=== PATIENT | male | born 1990 ===

== ENCOUNTER 2016-10-04 19:39 | Emergency (ER) | payer SELFPAY ==
[2016-10-04 19:48] VITALS: BP 128/71; RESP 18; TEMP 97.7; O2SAT 98
[2016-10-04] MEDS ORDERED: Oxycodone/Acetaminophen 5/325 mg Tab PO STA (20:41)
--- NOTE | 2016-10-04 20:45 | ED PDOC ---
HPI: Dental Pain/Injury Time Seen by Provider: 10/04/16 20:02 Chief Complaint (Nursing): Dental Pain Chief Complaint (Provider): Right upper left dental pain x 4 days History Per: Patient History/Exam Limitations: no limitations Onset/Duration Of Symptoms: Days Current Symptoms Are (Timing): Still Present Severity: Severe Pain Scale Rating Of: 10 Quality: Sharp Additional Complaint(s): Taking tylenol without relief. No fever/chills. No drainage. Past Medical History Reviewed: Historical Data, Nursing Documentation, Vital Signs Vital Signs: Last Vital Signs Temp 97.7 F 10/04/16 19:45 Pulse 102 H 10/04/16 19:45 Resp 18 10/04/16 19:45 BP 128/71 10/04/16 19:45 Pulse Ox 98 10/04/16 19:45 - Medical History PMH: Asthma, Bronchitis - Surgical History Surgical History: No Surg Hx - Family History Family History: States: Unknown Family Hx - Living Arrangements Living Arrangements: With Family - Social History Current smoker - smoking cessation education provided: No - Immunization History Hx Tetanus Toxoid Vaccination: No Hx Influenza Vaccination: No Hx Pneumococcal Vaccination: No - Home Medications Home Medications: Ambulatory Orders Medication Instructions Recorded Albuterol Sulfate [Albuterol Hfa] 2 puff IH Q4 PRN #1 unit 12/17/13 Albuterol Sulfate [Albuterol 3 ml IH QID #100 vial 12/24/13 Sulfate 3 ml] Azithromycin [Zithromax Z-Yogi] 250 mg PO DAILY #6 tab 12/24/13 Nebulizer [Aerosol Therapy 1 dev NEB PRN PRN #1 dev 12/24/13 Nebulizer] guaiFENesin/Dextromethorphan 5 ml PO QID #100 ml 12/24/13 [Q-Tussin Dm 10 MG/5 Ml-100 MG/5 Ml 120 Ml] Penicillin VK [Pen-Vee K] 500 mg PO BID #20 tab 10/04/16 oxyCODONE/Acetaminophen [Percocet 1 ea PO Q6H PRN #15 tab 10/04/16 5/325 mg Tab] - Allergies Allergies/Adverse Reactions: Allergies Allergy/AdvReac Type Severity Reaction Status Date / Time No Known Allergies Allergy Verified 12/17/13 07:48 Review of Systems ROS Statement: Except As Marked, All Systems Reviewed And Found Negative Constitutional: Negative for: Fever, Chills ENT: Positive for: Other Physical Exam - Reviewed Nursing Documentation Reviewed: Yes Vital Signs Reviewed: Yes - Physical Exam Appears: Positive for: Well, Non-toxic, No Acute Distress Head Exam: Positive for: ATRAUMATIC, NORMAL INSPECTION, NORMOCEPHALIC Skin: Positive for: Warm. Negative for: Normal Color Eye Exam: Positive for: Normal appearance ENT: Positive for: Normal ENT Inspection, Other Neck: Positive for: Normal, Painless ROM Cardiovascular/Chest: Positive for: Regular Rate, Rhythm Respiratory: Positive for: Normal Breath Sounds. Negative for: Accessory Muscle Use, Respiratory Distress Back: Positive for: Normal Inspection Extremity: Positive for: Normal ROM Neurologic/Psych: Positive for: Alert, Oriented - ECG O2 Sat by Pulse Oximetry: 98 Pulse Ox Interpretation: Normal Disposition - Clinical Impression Clinical Impression: Dental caries - Patient ED Disposition Is Patient to be Admitted: No Counseled Patient/Family Regarding: Diagnosis, Need For Followup, Rx Given - Disposition Referrals: [facility] [Outside] Disposition: Routine/Home Disposition Time: 20:47 Condition: GOOD Prescriptions: oxyCODONE/Acetaminophen [Percocet 5/325 mg Tab] 1 ea PO Q6H PRN #15 tab PRN Reason: Pain, Severe (8-10) Penicillin VK [Pen-Vee K] 500 mg PO BID #20 tab Instructions: Toothache (ED)
[2016-10-04] MEDS ORDERED: Oxycodone/Acetaminophen 5/325 mg Tab ONE (21:08)
[2016-10-04 21:11] VITALS: PULSE 92
== END 2016-10-04 21:11 | disposition home or self-care (01) ==
LOC: H.ER 19:39
DX: K02.9 Dental caries, unspecified (principal)

== ENCOUNTER 2018-05-30 17:27 | Emergency (ER) | payer MEDICAID, OTHER ==
[2018-05-30 17:50] VITALS: TEMP 98.7; O2SAT 97
[2018-05-30] MEDS ORDERED: Sterile Water 10 ML IV ONE (19:14)
[2018-05-30] MEDS ORDERED: cefTRIAXone (Rocephin) 250 mg Inj ONE (19:15)
[2018-05-30] MEDS: cefTRIAXone (Rocephin) 250 mg Inj IM ONE (19:59)
--- NOTE | 2018-05-30 20:05 | ED PDOC ---
HPI: Male Pain Time Seen by Provider: 05/30/18 18:25 Chief Complaint (Nursing): Male Genitourinary Chief Complaint (Provider): Male Genitourinary History Per: Patient History/Exam Limitations: no limitations Additional Complaint(s): 27 year old male with a history of childhood asthma presents to the ED requesting STD prophylaxis. Patient states he received a text from his ex boyfriend stating that he tested positive for chlamydia. Patient admitted to having unprotected sex with that partner, prompting ED visit today. Patient denies having a history of STD's. In addition patient is requesting HIV testing. Patient denies having any symptoms or physical complaints at present. PMD: None Past Medical History Reviewed: Historical Data, Nursing Documentation, Vital Signs Vital Signs: Last Vital Signs Temp 98.7 F 05/30/18 17:46 Pulse 108 H 05/30/18 17:46 Resp 18 05/30/18 17:46 BP 148/93 H 05/30/18 17:46 Pulse Ox 97 05/30/18 17:46 SEBASTIAN Report Viewed: Yes - Medical History PMH: Asthma (Childhood ), Bronchitis - Surgical History Other surgeries: Keloid Removal - Family History Family History: States: No Known Family Hx - Social History Current smoker - smoking cessation education provided: Yes SMOKER/PACKS PER DAY:: 1 Alcohol: Social Drugs: Denies - Home Medications Home Medications: Ambulatory Orders Medication Instructions Recorded Albuterol Sulfate [Albuterol Hfa] 2 puff IH Q4 PRN #1 unit 12/17/13 Nebulizer [Aerosol Therapy 1 dev NEB PRN PRN #1 dev 12/24/13 Nebulizer] oxyCODONE/Acetaminophen [Percocet 1 ea PO Q6H PRN #15 tab 10/04/16 5/325 mg Tab] Naproxen 500 mg PO BID PRN 01/14/18 Naproxen [Naprosyn] 1 tab PO BID PRN #20 tab 01/14/18 - Allergies Allergies/Adverse Reactions: Allergies Allergy/AdvReac Type Severity Reaction Status Date / Time No Known Allergies Allergy Verified 12/17/13 07:48 Review of Systems ROS Statement: Except As Marked, All Systems Reviewed And Found Negative Physical Exam - Reviewed Nursing Documentation Reviewed: Yes Vital Signs Reviewed: Yes - Physical Exam Comments: GENERAL APPEARANCE: Patient is awake, alert, oriented x 3, in no acute distress. Resting comfortably. SKIN: Warm, dry; (-) cyanosis. LUNGS: clear to auscultation bilaterally (-) wheezing, (-) rhonchi (-) rales CARDIAC: RRR ABDOMEN: Soft. (-) tenderness (-) distention (-) CVA tenderness NECK: Supple, FROM ENT: Mucus membranes moist. Airway patent, (-) stridor. - ECG O2 Sat by Pulse Oximetry: 97 (RA) Pulse Ox Interpretation: Normal Medical Decision Making Medical Decision Makin:25 Clincal Impression: 27 year old male patient requesting STD prophylaxis Initial Plan: * Rapid HIV Screen * Chlamydia/GC RNA, TMA * Rocephin 250mg IM Once * Zithromax 1000 mg PO 2019 Repeat BP: 134/88 Repeat HR: 88 Rapid HIV: nonreactive On re-evaluation, patient reports improvement of symptoms. On exam, patient remains AAOx3, in no acute distress. Vitals stable. Lab/Diagnostic results d/w the patient in great detail. Diagnosis of STD exposure d/w the patient. Based on history, exam and diagnostic results, plan will be for outpatient follow up. Patient instructed to follow-up with pmd / referral provided / the clinic in 1- 2 days without fail. Advised to take medication as prescribed. Return to the emergency room at any time for any new or worsening symptoms. Patient states he fully agrees with and understands discharge instructions. States that he agrees with the plan and disposition. Verbalized and repeated discharge instructions and plan. I have given the patient opportunity to ask any additional questions. Scribe Attestation: Documented by Mahad George, acting as a scribe for Ricarda Rich PA-C. Provider Scribe Attestation: All medical record entries made by the Scribe were at my direction and personally dictated by me. I have reviewed the chart and agree that the record accurately reflects my personal performance of the history, physical exam, medical decision making, and the department course for this patient. I have also personally directed, reviewed, and agree with the discharge instructions and disposition. Disposition - Clinical Impression Clinical Impression: STD exposure - Patient ED Disposition Is Patient to be Admitted: No Counseled Patient/Family Regarding: Studies Performed, Diagnosis, Need For Followup - Disposition Referrals: [facility] [Outside] Carlyle Cosme MD [Medical Doctor] - Disposition: Routine/Home Disposition Time: 20:20 Condition: STABLE Additional Instructions: The emergency medical care you received today was directed at your acute symptoms. If you were prescribed any medication, please fill it and take as directed. It may take several days for your symptoms to resolve. Return to the Emergency Department if your symptoms worsen, do not improve, or if you have any other problems. Please contact your doctor in 2 days for re-evaluation and follow up / or call one of the physicians/clinics you have been referred to that are listed on the Patient Visit Information form that is included in your discharge packet. Bring any paperwork you were given at discharge with you along with any medications you are taking to your follow up visit. Our treatment cannot replace ongoing medical care by a primary care provider (PCP) outside of the emergency department. Instructions: Screening for Sexually Transmitted Infections, Sexually- Transmitted Diseases, STD Prevention Forms: [facility] (Czech) Print Language: VIETNAMESE - POA Present On Arrival: None Results - Lab Results Lab Results: 05/30/18 19:24 HIV-1 Ab Rapid Screen Non reactive
[2018-05-30 20:26] VITALS: BP 134/88; PULSE 88; RESP 16
== END 2018-05-30 20:52 | disposition home or self-care (01) ==
LOC: H.ER 17:27
DX: Z20.2 Contact with and (suspected) exposure to infections with a predominantly sexual mode of transmission (principal)
CPT/HCPCS: 87390; 87491; 87591; 96372; 99282; J0696

== ENCOUNTER 2018-07-02 13:03 | Emergency (ER) | payer OTHER ==
[2018-07-02] MEDS ORDERED: Albuterol-Ipratrop 3 mg / 0.5 (3 ml) UD INH STA ×2 (14:08→14:50)
[2018-07-02] MEDS ORDERED: Albuterol-Ipratrop 3 mg / 0.5 (3 ml) UD ONE ×2 (14:13→14:57)
[2018-07-02 14:49] LABS: BASO % 0.3 % (0.0-2.0); EOS # 0.1 K/uL (0.0-0.7); EOS % 0.9 % (0.0-4.0); LYMPH # 2.3 K/uL (1.0-4.3); LYMPH % 30.2 % (20.0-40.0); MEAN CELL VOLUME 87.8 fl (80.0-94.0); MEAN CORPUSCULAR HEMOGLOBIN 29.7 pg (27.0-31.0); MEAN CORPUSCULAR HGB CONC 33.9 g/dL (33.0-37.0); MEAN PLATELET VOLUME 9.7 fl (7.2-11.7); MONO % 13.7 % (0.0-10.0); NEUT # 4.2 K/uL (1.8-7.0); NEUT % 54.9 % (50.0-75.0); NRBC % 0.1 % (0.0-0.0); RBC 5.37 Mil/uL (4.40-5.90); RED CELL DISTRIBUTION WIDTH 14.1 % (11.5-14.5); WHITE BLOOD COUNT 7.6 K/uL (4.8-10.8)
--- NOTE | 2018-07-02 14:51 | RAD ---
Date of service: 07/02/2018 HISTORY: shortness of breath, cough COMPARISON: No prior. TECHNIQUE: Chest PA and lateral views FINDINGS: LUNGS: Ill-defined opacity upper right chauncey thorax, likely right upper lobe. Not clearly evident in the lateral projection. No other abnormal opacity. PLEURA: No significant pleural effusion identified. No pneumothorax apparent. CARDIOVASCULAR: No aortic atherosclerotic calcification present. Normal cardiac size. No pulmonary vascular congestion. OSSEOUS STRUCTURES: No significant abnormalities. VISUALIZED UPPER ABDOMEN: Normal. OTHER FINDINGS: None. IMPRESSION: Probable right upper lobe pneumonia.
[2018-07-02 14:52] LABS: BLOOD UREA NITROGEN 9 mg/dl (9-20); CALCIUM 8.8 mg/dL (8.4-10.2); GFR NON-AFRICAN AMERICAN > 60
--- NOTE | 2018-07-02 15:03 | ED PDOC ---
HPI: Influenza Time Seen by Provider: 07/02/18 13:26 Chief Complaint: Cough, Cold, Congestion Chief Complaint (Provider): Cough, Cold, Congestion History Per: Patient Exam Limitations: no limitations Onset/Duration Of Symptoms: Days (7) Additional complaint(s):: 27 y/o male presents to the ED complaining of cough with shortness of breath for the past week. Patient states that the cough is productive with white sputum and subjective fever last night which took Tylenol. Patient report 1 episode of chills 3 days ago and admits use nebulizer last night and has not been using inhaler because I know I need steroids. Patient denies nausea, vomiting, diarrhea, sore throat, ear pain, or any body aches. PMD: none provided Past Medical History Reviewed: Historical Data, Nursing Documentation, Vital Signs Vital Signs: Last Vital Signs Temp 98.9 F 07/02/18 13:21 Pulse 105 H 07/02/18 13:21 Resp 20 07/02/18 13:21 BP 136/83 07/02/18 13:21 Pulse Ox 97 07/02/18 13:21 - Medical History PMH: Asthma (Childhood ), Bronchitis - Family History Family History: States: Unknown Family Hx - Immunization History Hx Tetanus Toxoid Vaccination: No Hx Influenza Vaccination: No Hx Pneumococcal Vaccination: No - Home Medications Home Medications: Ambulatory Orders Medication Instructions Recorded Albuterol Sulfate [Albuterol Hfa] 2 puff IH Q4 PRN #1 unit 12/17/13 Nebulizer [Aerosol Therapy 1 dev NEB PRN PRN #1 dev 12/24/13 Nebulizer] oxyCODONE/Acetaminophen [Percocet 1 ea PO Q6H PRN #15 tab 10/04/16 5/325 mg Tab] Naproxen 500 mg PO BID PRN 01/14/18 Naproxen [Naprosyn] 1 tab PO BID PRN #20 tab 01/14/18 Albuterol 0.083% [Albuterol 0.083% 3 ml IH Q6 PRN 7 Days neb 07/02/18 Inhal Berta (2.5 mg/3 ml) UD] Albuterol HFA [Ventolin HFA 90 1 puff IH Q6 PRN #1 inhaler 07/02/18 mcg/actuation (8 g)] Levofloxacin [Levaquin] 750 mg PO DAILY #4 tablet 07/02/18 Prednisone 50 mg PO DAILY #4 tablet 07/02/18 - Allergies Allergies/Adverse Reactions: Allergies Allergy/AdvReac Type Severity Reaction Status Date / Time No Known Allergies Allergy Verified 12/17/13 07:48 Review of Systems ROS Statement: Except As Marked, All Systems Reviewed And Found Negative Constitutional: Positive for: Other ((-) bodyaches.) ENT: Negative for: Ear Pain, Throat Pain Respiratory: Positive for: Cough, Shortness of Breath Gastrointestinal: Negative for: Nausea, Vomiting, Diarrhea Physical Exam - Reviewed Nursing Documentation Reviewed: Yes Vital Signs Reviewed: Yes - Physical Exam Appears: Positive for: No Acute Distress ENT: Positive for: Normal ENT Inspection, Other (Mild erythematous left tympanic membrane and ear canal.) Cardiovascular/Chest: Positive for: Regular Rate, Rhythm. Negative for: Murmur Respiratory: Positive for: Rhonchi, Wheezing (bilateral) Neurological/Psych: Positive for: Awake, Alert, Oriented (x3) Medical Decision Making Medical Decision Making: Time:1407 Initial Plan: -BMP -CBC -Chest x-ray -Duoneb 3mL INH x1 -Blood culture -Peak flow pre and post -Influenza CXR: FINDINGS: LUNGS: Ill-defined opacity upper right chauncey thorax, likely right upper lobe. Not clearly evident in the lateral projection. No other abnormal opacity. PLEURA: No significant pleural effusion identified. No pneumothorax apparent. CARDIOVASCULAR: No aortic atherosclerotic calcification present. Normal cardiac size. No pulmonary vascular congestion. OSSEOUS STRUCTURES: No significant abnormalities. VISUALIZED UPPER ABDOMEN: Normal. OTHER FINDINGS: None. IMPRESSION: Probable right upper lobe pneumonia. 1456 reevaluated and lungs sound has improved but continue mild intermittent wheezing. Duoneb x1, Blood culture, Levaquin 750 PO x1. 15:45: re-evaluated, lungs clear B/L. States that SOB has improved but still has some. Labs are unremarkable and VSS. Stable for d/c home with return instructions given. Scribe Attestation: Documented by Gabrielle Araujo, acting as a scribe for Rachel Burgess. Provider Scribe Attestation: All medical record entries made by the Scribe were at my direction and personally dictated by me. I have reviewed the chart and agree that the record accurately reflects my personal performance of the history, physical exam, medical decision making, and the department course for this patient. I have also personally directed, reviewed, and agree with the discharge instructions and disposition. - Laboratory Results Result Diagrams: 07/02/18 14:10 07/02/18 14:10 - ECG O2 Sat by Pulse Oximetry: 97 Disposition - Clinical Impression Clinical Impression: Community acquired pneumonia - Patient ED Disposition Is Patient to be Admitted: No Counseled Patient/Family Regarding: Studies Performed, Diagnosis, Need For Followup, Rx Given - Disposition Disposition: Routine/Home Disposition Time: 16:00 Condition: IMPROVED Additional Instructions: Follow up with your primary care doctor within the next few days. Complete full course of antibiotics as prescribed and Prednisone. Start tomorrow as you received first doses today. Return to ER if your symptoms worsen. Prescriptions: Albuterol 0.083% [Albuterol 0.083% Inhal Berta (2.5 mg/3 ml) UD] 3 ml IH Q6 PRN 7 Days neb PRN Reason: Cough And Congestion Albuterol HFA [Ventolin HFA 90 mcg/actuation (8 g)] 1 puff IH Q6 PRN #1 inhaler PRN Reason: Wheezing Levofloxacin [Levaquin] 750 mg PO DAILY #4 tablet Prednisone 50 mg PO DAILY #4 tablet Instructions: Pneumonia, Adult (DC) Forms: [facility] (Lithuanian), [facility] School/Work Excuse Print Language: [place]
[2018-07-02 15:52] VITALS: BP 143/81; PULSE 87; RESP 18; TEMP 97.9
[2018-07-02] MEDS ORDERED: levoFLOXacin 750 MG TAB PO ONE (16:00)
[2018-07-02 16:34] VITALS: O2SAT 97
== END 2018-07-02 16:00 | disposition home or self-care (01) ==
LOC: H.ER 13:03
DX: J18.9 Pneumonia, unspecified organism (principal); J45.909 Unspecified asthma, uncomplicated; Z79.899 Other long term (current) drug therapy; J11.00 Influenza due to unidentified influenza virus with unspecified type of pneumonia